=== PATIENT | female | born 1985 | race Hispanic/Latino ===

== ENCOUNTER 2016-07-14 15:09 | Outpatient (CLI) | payer OTHER ==
[2016-07-17 18:53] LABS: HPV High Risk Type 16 Negative (Negative); HPV High Risk Type 18 Negative (Negative); HPV Other High Risk Types Negative (Negative)
== END 2016-07-14 15:10 | disposition home or self-care (01) ==
LOC: MADLABBHPM 15:09
PROVIDERS: ATTEND Family Medicine
DX: Z01.419 Encounter for gynecological examination (general) (routine) without abnormal findings (principal)
CPT/HCPCS: 87480; 87510; 87624; 87660; 88142; G0123

== ENCOUNTER 2023-05-21 17:14 | Emergency (ER) | payer OTHER, SELFPAY ==
[2023-05-21 19:05] LABS: SARS-CoV-2 NAA Rapid Test Not Detected (NotDetected)
== END 2023-05-21 19:35 | disposition home or self-care (01) ==
LOC: MADERS 17:14
DX: J06.9 Acute upper respiratory infection, unspecified (principal); E11.9 Type 2 diabetes mellitus without complications; Z20.822 Contact with and (suspected) exposure to COVID-19
CPT/HCPCS: 87804; 99283; U0002